=== PATIENT | male | born 1945 | race Caucasian/White ===

== ENCOUNTER 2024-05-21 06:15 | Observation (INO) | payer MEDICARE ==
[2024-05-21] MEDS ORDERED: LevoFLOXacin D5W 500 mg (100 mL) BAG ONE (07:44)
[2024-05-21] MEDS ORDERED: Lidocaine 1% MPF 2 ML VIAL ONE (07:54)
[2024-05-21 08:26] LABS: INR-International Normal Ratio 1.1; PTT 28.7 sec (22.9-36.1); Prothrombin Time 14.2 sec (12.0-14.7)
[2024-05-21] MEDS ORDERED: fentaNYL PF 100 MCG/2 ML SYRINGE ONE (08:28)
[2024-05-21] MEDS ORDERED: PROPOFOL 20 ML ONE (08:28)
[2024-05-21] MEDS ORDERED: ePHEDrine Sulfate 50 MG/10 ML VIAL ONE (08:31)
[2024-05-21] MEDS ORDERED: Rocuronium Bromide 10 MG/ML (10ML VIAL) ONE (08:42)
[2024-05-21] MEDS ORDERED: Lidocaine 2% PF 5 ML VIAL ONE (08:42)
[2024-05-21] MEDS ORDERED: Metoclopramide HCl 10 MG (2 mL) VIAL ONE (08:43)
[2024-05-21] MEDS ORDERED: Ondansetron PF 4 MG/2 ML Vial ONE (08:43)
[2024-05-21] MEDS ORDERED: SUGAMMADEX SODIUM 200 MG/2 ML VIAL ONE (10:16)
[2024-05-21] MEDS ORDERED: HYDROcodone/Acetaminophen 5/325 mg Tablet PO PRN ×2 (10:51)
[2024-05-21] MEDS ORDERED: Dextrose 50% Abboject 50 ML SYRINGE SLOW IVP PRN (10:51)
[2024-05-21] MEDS ORDERED: Zolpidem Tartrate 5 MG TAB PO PRN (10:51)
[2024-05-21] MEDS ORDERED: Mag-Al 1200 mg/1200 mg/30 ML UDCUP PO PRN (10:51)
[2024-05-21] MEDS ORDERED: Dextrose 5% in Water 1,000 ML IV PRN (10:51)
[2024-05-21] MEDS ORDERED: diphenhydrAMINE 50 MG/ML VIAL IVP PRN (10:51)
[2024-05-21] MEDS ORDERED: Glucagon 1 MG/ML KIT IM PRN (10:51)
[2024-05-21] MEDS ORDERED: hydrALAZINE 20 MG/ML VIAL SLOW IVP PRN (10:51)
[2024-05-21] MEDS ORDERED: Ondansetron PF 4 MG/2 ML Vial IVP PRN (11:10)
[2024-05-21 11:31] LABS: #Basophils 0.04 10x3/uL (0.0-0.2); %Basophils 0.5 % (0.0-1.0); %Eosinophils 2.1 % (0.0-10.0); %Neutrophils 73.6 % (42.0-75.0); Hematocrit 45.2 % (42.0-52.0); Hemoglobin 15.7 g/dL (14.0-18.0); Mean Corpuscular HGB CONC 34.7 g/dL (32.0-36.0); Mean Corpuscular Hemoglobin 30.1 pg (27.0-31.0); Mean Corpuscular Volume 86.8 fL (78.0-98.0); Mean Platelet Volume 10.6 fL (7.4-10.4); Platelet Count 153 10x3/uL (130-400); RBC Distribution Width 13.2 % (11.5-14.5); Red Blood Cell (RBC) Count 5.21 mill/uL (4.70-6.10)
[2024-05-21] MEDS: Sodium Chloride 0.9% 1,000 ML IV SCH (11:40)
[2024-05-21 11:57] LABS: Anion Gap 9 mmol/L (10-20); BUN (Urea Nitrogen) 13 mg/dL (8.4-25.7); Calc. Creatinine Clearance 107 mL/min (70-130); Carbon Dioxide 23 mmol/L (23-31); Chloride 109 mmol/L (98-107); Estimated GFR 91; Glucose 236 mg/dL (83-110); Potassium 4.3 mmol/L (3.5-5.1); Sodium 137 mmol/L (136-145)
[2024-05-21] MEDS ORDERED: Hyoscyamine SL 0.125 MG TAB ONE (12:28)
[2024-05-21] MEDS: Hyoscyamine SL 0.125 MG TAB SL SCH (12:29)
[2024-05-21] MEDS ORDERED: Phenazopyridine HCl 100 MG TAB ONE (12:31)
[2024-05-21] MEDS: Phenazopyridine HCl 100 MG TAB PO SCH (12:32)
[2024-05-21] MEDS ORDERED: Insulin Regular, Human 100 UNIT/ML 10 ML VIAL ONE (12:35)
[2024-05-21] MEDS: Insulin Regular, Human 100 UNIT/ML 10 ML VIAL SC PRN (12:39)
[2024-05-21 16:17] VITALS: BMI 31.3
[2024-05-21] MEDS: Docusate 100 MG CAP PO SCH (20:16)
[2024-05-21] MEDS: Rosuvastatin 20 MG TAB PO SCH (20:17)
[2024-05-21] MEDS: Acetaminophen 325 MG TAB PO PRN (20:17)
[2024-05-21] MEDS: Famotidine/PF 20 mg/2ml Vial SLOW IVP SCH (20:17)
[2024-05-21] MEDS: Carvedilol 6.25 MG TAB PO SCH (20:18)
[2024-05-22] MEDS: cefTRIAXone\\ROCEPHIN 1 GM in Sodium Chloride 0.9% 100 ML IVPB SCH (05:20)
[2024-05-22] MEDS: Levothyroxine Sodium 100 MCG TAB PO SCH (05:20)
[2024-05-22 06:03] LABS: #Basophils 0.08 10x3/uL (0.0-0.2); %Basophils 0.8 % (0.0-1.0); %Eosinophils 3.3 % (0.0-10.0); %Monocytes 9.5 % (0.0-10.0); %Neutrophils 72.7 % (42.0-75.0); Hematocrit 44.3 % (42.0-52.0); Hemoglobin 15.1 g/dL (14.0-18.0); Mean Corpuscular HGB CONC 34.1 g/dL (32.0-36.0); Mean Corpuscular Hemoglobin 30.3 pg (27.0-31.0); Mean Corpuscular Volume 88.8 fL (78.0-98.0); Mean Platelet Volume 10.4 fL (7.4-10.4); Platelet Count 135 10x3/uL (130-400); RBC Distribution Width 13.4 % (11.5-14.5); Red Blood Cell (RBC) Count 4.99 mill/uL (4.70-6.10)
[2024-05-22 06:12] LABS: Anion Gap 9 mmol/L (10-20); BUN (Urea Nitrogen) 9 mg/dL (8.4-25.7); Calc. Creatinine Clearance 107 mL/min (70-130); Carbon Dioxide 25 mmol/L (23-31); Chloride 108 mmol/L (98-107); Estimated GFR 92; Glucose 163 mg/dL (83-110); Potassium 3.8 mmol/L (3.5-5.1); Sodium 138 mmol/L (136-145)
[2024-05-22] MEDS: Polyethylene Glycol 3350 17 GM Packet PO SCH (08:47)
[2024-05-22] MEDS: Tamsulosin HCl 0.4 MG CAP PO SCH (08:47)
[2024-05-22] MEDS: Dutasteride 0.5 MG CAP PO SCH (08:47)
[2024-05-22] MEDS: Valsartan 80 MG TAB PO SCH (08:48)
[2024-05-22] MEDS: metFORMIN 500 MG TAB PO SCH (08:48)
[2024-05-22 11:41] VITALS: BP 171/77; TEMP 99.4
[2024-05-27 12:41] LABS: CA Oxalate Monohydrate 100 % (.); Color Brown (.); Stone Weight 451 mg (.)
== END 2024-05-22 11:45 | disposition home or self-care (01) ==
LOC: SDC 06:15 → SURG A 15:37
PROVIDERS: ADMIT Urology; ATTEND Urology
PROC: 0TCB8ZZ Extirpation of Matter from Bladder, Via Natural or Artificial Opening Endoscopic (ICD-10-PCS; principal; 2024-05-21)
PROC: 0VT08ZZ Resection of Prostate, Via Natural or Artificial Opening Endoscopic (ICD-10-PCS; 2024-05-21)
DX: C61 Malignant neoplasm of prostate (principal); N40.1 Benign prostatic hyperplasia with lower urinary tract symptoms; R97.20 Elevated prostate specific antigen [PSA]; N32.3 Diverticulum of bladder; E11.65 Type 2 diabetes mellitus with hyperglycemia; I63.9 Cerebral infarction, unspecified; R31.29 Other microscopic hematuria; N28.1 Cyst of kidney, acquired; R35.0 Frequency of micturition; N20.0 Calculus of kidney; N21.0 Calculus in bladder; E78.00 Pure hypercholesterolemia, unspecified; I10 Essential (primary) hypertension; I48.91 Unspecified atrial fibrillation; E03.9 Hypothyroidism, unspecified; Z98.890 Other specified postprocedural states; Z79.899 Other long term (current) drug therapy; Z90.89 Acquired absence of other organs; Z79.01 Long term (current) use of anticoagulants
CPT/HCPCS: 52317; 52601; 80048 ×2; 82365; 82962 ×2; 85025 ×2; 85610; 85730; 86850; 86900; 86901; A4333; J0696; J1642; J1815; J1956; J2405; J2704; J2765; J3490 ×2; J7030; 36415; 36416; 88300; 88305

== ENCOUNTER 2024-06-02 10:15 | Outpatient (CLI) | payer MEDICARE | END 2024-06-02 10:16 | disposition home or self-care (01) | LOC: PET 10:15 | PROVIDERS: ATTEND Urology | DX: C61 Malignant neoplasm of prostate (principal) | CPT/HCPCS: 78815; A9552; A9595 ==

== ENCOUNTER 2024-07-28 15:33 | Outpatient (CLI) | payer MEDICARE | END 2024-07-28 15:34 | disposition home or self-care (01) | LOC: BICRAD 15:33 | PROVIDERS: ATTEND Urology | DX: N20.0 Calculus of kidney (principal); N28.89 Other specified disorders of kidney and ureter | CPT/HCPCS: 36415; 74018; 80048; 81001; 83036; 84153; 87086 ==